=== PATIENT | female | born 1975 | race Caucasian/White ===

== ENCOUNTER → 2017-02-17 | Outpatient (CLI) | payer OTHER ==
[2017-02-17 12:05] LABS: CHLORIDE,CL 103 mmol/L (98-110); SODIUM,NA 143 mmol/L (136-146)
== END ==
LOC: MW.CHOBGYN 10:38
PROVIDERS: ATTEND Nurse Practitioner Women's Health
DX: I12.9 Hypertensive chronic kidney disease with stage 1 through stage 4 chronic kidney disease, or unspecified chronic kidney disease (principal); Q61.5 Medullary cystic kidney
CPT/HCPCS: 36415; 80053; 81001; 82607; 82728; 84443; 84550

== ENCOUNTER → 2017-02-18 | Outpatient (CLI) | payer OTHER | LOC: MW.CHOBGYN 11:36 | PROVIDERS: ATTEND Nurse Practitioner Women's Health | DX: I10 Essential (primary) hypertension (principal); Z53.9 Procedure and treatment not carried out, unspecified reason ==

== ENCOUNTER → 2017-03-30 | Outpatient (CLI) | payer BC, OTHER ==
--- NOTE | 2017-03-30 15:48 | CR ---
EXAMINATION: Cervical and thoracic spine HISTORY: Pain COMPARISON: CT dated 10/24/2015 TECHNIQUE: AP and lateral views of the cervical and thoracic spine FINDINGS: The cervical spinal alignment is normal. The vertebral body heights and disc spaces are grossly main tained. Bone mineralization is normal. No fracture or acute osseous abnormality. The prevertebral so ft tissues are normal. The thoracic spinal alignment is normal. The vertebral body heights appear well maintained. Minimal marginal osteophytes are noted. There is a spinal cord stimulator device noted projecting over the T 8 and T9 vertebral bodies. There is mild disc space narrowing at T10-T11. Bone mineralization is nor mal. IMPRESSION: 1. Mild degenerative changes noted within the cervical and thoracic spine. 2. Spinal cord stimulator device noted with leads projecting over the epidural space at T8-T9.
== END ==
LOC: MW.CHPM 09:59
PROVIDERS: ATTEND Anesthesiology
DX: M54.2 Cervicalgia (principal); M47.812 Spondylosis without myelopathy or radiculopathy, cervical region; M47.814 Spondylosis without myelopathy or radiculopathy, thoracic region; Z79.891 Long term (current) use of opiate analgesic; Z98.890 Other specified postprocedural states
CPT/HCPCS: 72040; 72040-26; 72070; 72070-26; 80305

== ENCOUNTER 2017-08-31 15:35 | Observation (INO) | payer BC ==
[2017-08-31] MEDS ORDERED: Sodium Chloride 0.9% 2.5 ML Syringe FLUSH PRN ×2 (16:04→16:06)
[2017-08-31] MEDS ORDERED: Sodium Chloride 0.9% 10 ML Syringe FLUSH PRN ×2 (16:04→16:06)
[2017-08-31] MEDS ORDERED: Sodium Chloride 0.9% 1,000 ML IV ONE ×2 (16:06→20:29)
--- NOTE | 2017-08-31 16:11 | EDM.PDOC ---
ED HPI GENERAL MEDICAL PROBLEM - General Chief Complaint: General Stated Complaint: FEVER Time Seen by Provider: 08/31/17 16:06 Source of Information: Reports: Patient History Limitations: Reports: No Limitations - History of Present Illness INITIAL COMMENTS - FREE TEXT/NARRATIVE: HISTORY AND PHYSICAL: []42-year-old presenting with flank pain, nausea, vomiting, bladder spasms History of Present Illness: []Patient has felt back pain for the last 2 weeks thought she was going to try to pass a kidney stone, she has had bladder spasms and pain since last night. Review of Systems: As per history of present illness and below otherwise all systems reviewed and negative. Past medical history: As per history of present illness and as reviewed below otherwise noncontributory. Surgical history: As per history of present illness and as reviewed below otherwise noncontributory. Social history: No reported history of drug or alcohol abuse. Family history: As per history of present illness and as reviewed below otherwise noncontributory. Physical exam: Alert and oriented female, answering questioning appropriately. No shortness of breath with speaking full sentences. HEENT: Atraumatic, normocehpalic, pupils reactive, negative for conjunctival pallor or scleral icterus, mucous membranes moist, throat clear, neck supple, nontender, trachea midline. Lungs: Clear to auscultation, breath sounds equal bilaterally, chest non tender. Heart: S1S2, regular, negative for clicks, rubs, or JVD. Abdomen: Soft, nondistended, nontender. Negative for masses or hepatossplenmegaly. Negative for costovertebral tenderness. Pelvis: Stable nontender. Genitourinary: Deferred. Rectal: Deferred Extremities: Atraumatic, negative for cords or calf pain. Neurovascular unremarkable. Neuro: Awake, alert, oriented. Cranial nerves II through XII unremarkable. Cerebellum unremarkable. Motor and sensory unremarkable throughout. Exam nonfocal. 1 mg Dilaudid given pain is reduced to 6/10 Dr. Canada is here viewing CT scan Diagnostics: [CBC CMP CT abdomen and pelvis UA with microscopic and culture] Therapeutics: [IV fluids] Impression: [Ureteral lithiasis Renal colic Intractable pain Plan: []Referred for observation to Dr. Canada Definitive disposition and diagnosis as appropriate pending reevaluation and review of above. hypogatric Pain Score (Numeric/FACES): 7 left flank Pain Score (Numeric/FACES): 7 - Related Data Allergies Allergy/AdvReac Type Severity Reaction Status Date / Time ciprofloxacin [From Cipro] Allergy Rash Verified 08/31/17 15:47 ciprofloxacin HCl Allergy Rash Verified 08/31/17 15:47 [From Cipro] hydrocodone Allergy unknown Verified 08/31/17 15:47 latex Allergy unknown Verified 08/31/17 15:47 meperidine HCl [From Demerol] Allergy unknown Verified 08/31/17 15:47 morphine Allergy unknown Verified 08/31/17 15:47 Home Meds: Home Meds Atenolol 50 mg PO BID 09/28/14 [History] Carisoprodol [Soma] 350 mg PO ASDIRECTED PRN 09/28/14 [History] Estazolam [Prosom] 2 mg PO ASDIRECTED PRN 09/28/14 [History] Furosemide [Lasix] 20 mg PO DAILY 09/28/14 [History] Joint Compound Ketamine Powder 1 appful TOP ASDIRECTED PRN 09/28/14 [History] Levomilnacipran Hydrochloride [Fetzima 24 Hr] 80 mg PO DAILY 09/28/14 [History] Levothyroxine 75 mcg PO DAILY 09/28/14 [History] QUEtiapine [SEROquel XR] 50 mg PO DAILY 09/28/14 [History] Omeprazole [Prilosec] 20 mg PO DAILY 09/29/14 [History] Promethazine [Phenergan] 25 mg PO Q6H PRN #14 tab 09/30/14 [Rx] Sulfamethoxazole/Trimethoprim [Bactrim Ds Tablet] 1 each PO BID #22 tablet 09/30 [Rx] oxyCODONE HCl/Acetaminophen [Percocet 7.5-325 MG] 1 tab PO Q8HR PRN #10 tablet 09/30/14 [Rx] Social & Family History - Tobacco Use Smoking Status *Q: Never Smoker Second Hand Smoke Exposure: No - Alcohol Use Days Per Week of Alcohol Use: 0 - Recreational Drug Use Recreational Drug Use: No ED ROS GENERAL - Review of Systems Review Of Systems: ROS reveals no pertinent complaints other than HPI. ED EXAM, GENERAL - Physical Exam Exam: See Below (see dictation) Course - Vital Signs Last Recorded V/S: Last Vital Signs Temp 36.2 C 08/31/17 15:35 Pulse 102 H 08/31/17 21:42 Resp 18 08/31/17 21:42 BP 137/85 08/31/17 21:42 Pulse Ox 98 08/31/17 21:42 - Orders/Labs/Meds Orders: Active Orders 24 hr Category Date Time Status Patient Status [ADT] Stat ADT 08/31/17 21:47 Ordered Cooling Warming Measures [RC] ASDIRECTED Care 08/31/17 18:28 Active Abdomen Pelvis w Cont [CT] Stat Exams 08/31/17 18:27 Taken CULTURE URINE [RM] Stat Lab 08/31/17 18:42 Received Belladonna/Opium [B & O Supprettes No. 15A] Med 08/31/17 21:49 Ordered 1 supp RECTAL Q4H PRN Dextrose 5%-1/2 Normal Saline @ 125 MLS/HR(1000ml) Med 08/31/17 22:00 Ordered Dextrose 5%-0.45% NaCl [Dextrose 5%-1/2 NS] 1,000 ml IV ASDIRECTED HYDROmorphone [Dilaudid] Med 08/31/17 21:52 Ordered 1 mg IVPUSH Q2H PRN Ondansetron [Zofran] Med 08/31/17 21:50 Ordered 4 mg IVPUSH Q6H PRN Sodium Chloride 0.9% [Saline Flush] Med 08/31/17 16:04 Active 10 ml FLUSH ASDIRECTED PRN Sodium Chloride 0.9% [Saline Flush] Med 08/31/17 16:06 Active 10 ml FLUSH ASDIRECTED PRN Sodium Chloride 0.9% [Saline Flush] Med 08/31/17 16:04 Active 2.5 ml FLUSH ASDIRECTED PRN Sodium Chloride 0.9% [Saline Flush] Med 08/31/17 16:06 Active 2.5 ml FLUSH ASDIRECTED PRN Ice Pack [Ice Therapy] [OM.PC] Stat Oth 08/31/17 18:28 Ordered Saline Lock Insert [OM.PC] Stat Oth 08/31/17 16:05 Ordered Saline Lock Insert [OM.PC] Stat Oth 08/31/17 16:06 Ordered Medication Orders Belladonna Alkaloids/Opium (B & O Supprettes No. 15a) 1 supp RECTAL Q4H PRN PRN Reason: Spasms Stop: 09/01/17 18:00 Hydromorphone HCl (Dilaudid) 1 mg IVPUSH Q2H PRN PRN Reason: Pain (moderate 4-6) Stop: 09/01/17 18:00 Dextrose/Sodium Chloride (Dextrose 5%-1/2 Ns) 1,000 mls @ 125 mls/hr IV ASDIRECTED NAN Ondansetron HCl (Zofran) 4 mg IVPUSH Q6H PRN PRN Reason: Nausea Sodium Chloride (Saline Flush) 10 ml FLUSH ASDIRECTED PRN PRN Reason: Keep Vein Open Last Admin: 08/31/17 17:14 Dose: 10 ml Sodium Chloride (Saline Flush) 2.5 ml FLUSH ASDIRECTED PRN PRN Reason: Keep Vein Open Last Admin: 08/31/17 17:14 Dose: 2.5 ml Sodium Chloride (Saline Flush) 10 ml FLUSH ASDIRECTED PRN PRN Reason: Keep Vein Open Last Admin: 08/31/17 17:14 Dose: 10 ml Sodium Chloride (Saline Flush) 2.5 ml FLUSH ASDIRECTED PRN PRN Reason: Keep Vein Open Last Admin: 08/31/17 17:14 Dose: 2.5 ml Labs: Laboratory Tests 08/31/17 08/31/17 08/31/17 Range/Units 16:17 16:17 16:17 WBC 9.29 (4.0-11.0) K/uL RBC 4.83 (4.30-5.90) M/uL Hgb 15.0 (12.0-16.0) g/dL Hct 43.9 (36.0-46.0) % MCV 90.9 (80.0-98.0) fL MCH 31.1 (27.0-32.0) pg MCHC 34.2 (31.0-37.0) g/dL RDW Std Deviation 44.8 (28.0-62.0) fl RDW Coeff of Shannan 14 (11.0-15.0) % Plt Count 226 (150-400) K/uL MPV 9.20 (7.40-12.00) fL Neut % (Auto) 82.0 H (48.0-80.0) % Lymph % (Auto) 13.9 L (16.0-40.0) % [place] % (Auto) 3.7 (0.0-15.0) % Eos % (Auto) 0.2 (0.0-7.0) % Baso % (Auto) 0.2 (0.0-1.5) % Neut # (Auto) 7.6 H (1.4-5.7) K/uL Lymph # (Auto) 1.3 (0.6-2.4) K/uL [place] # (Auto) 0.3 (0.0-0.8) K/uL Eos # (Auto) 0.0 (0.0-0.7) K/uL Baso # (Auto) 0.0 (0.0-0.1) K/uL Nucleated RBC % 0.0 /100WBC Nucleated RBCs # 0 K/uL Sodium 142 (136-146) mmol/L Potassium 4.1 (3.5-5.1) mmol/L Chloride 104 (98-110) mmol/L Carbon Dioxide 27 (21-31) mmol/L BUN 20 (6.0-23.0) mg/dL Creatinine 0.9 (0.6-1.5) mg/dL Est Cr Clr Drug Dosing TNP Estimated GFR (MDRD) > 60.0 ml/min Glucose 109 (60-110) mg/dL Calcium 9.6 (8.8-10.8) mg/dL Total Bilirubin 0.3 (0.1-1.5) mg/dL AST 21 (5-40) IU/L ALT 16 (8-54) IU/L Alkaline Phosphatase 85 (40-150) Ammonia 36 (14-68) UG/DL Total Protein 7.9 (6.0-8.0) g/dL Albumin 4.4 (3.5-5.0) g/dL Globulin 3.5 (2.0-3.5) g/dL Albumin/Globulin Ratio 1.3 (1.3-2.8) HCG, Quant mIU/mL Urine Color Urine Appearance Urine pH (5.0-8.0) Ur Specific [place] (1.001-1.035) Urine Protein (NEGATIVE) mg/dL Urine Glucose (UA) (NEGATIVE) mg/dL Urine Ketones (NEGATIVE) mg/dL Urine Occult Blood (NEGATIVE) Urine Nitrite (NEGATIVE) Urine Bilirubin (NEGATIVE) Urine Urobilinogen (<2.0) EU/dL Ur Leukocyte Esterase (NEGATIVE) Urine RBC (0-2/HPF) Urine WBC (0-5/HPF) Ur Epithelial Cells (NONE-FEW) Urine Bacteria (NEGATIVE) Urine HCG, Qual (NEGATIVE) 08/31/17 08/31/17 08/31/17 Range/Units 16:17 18:42 18:42 WBC (4.0-11.0) K/uL RBC (4.30-5.90) M/uL Hgb (12.0-16.0) g/dL Hct (36.0-46.0) % MCV (80.0-98.0) fL MCH (27.0-32.0) pg MCHC (31.0-37.0) g/dL RDW Std Deviation (28.0-62.0) fl RDW Coeff of Shannan (11.0-15.0) % Plt Count (150-400) K/uL MPV (7.40-12.00) fL Neut % (Auto) (48.0-80.0) % Lymph % (Auto) (16.0-40.0) % [place] % (Auto) (0.0-15.0) % Eos % (Auto) (0.0-7.0) % Baso % (Auto) (0.0-1.5) % Neut # (Auto) (1.4-5.7) K/uL Lymph # (Auto) (0.6-2.4) K/uL [place] # (Auto) (0.0-0.8) K/uL Eos # (Auto) (0.0-0.7) K/uL Baso # (Auto) (0.0-0.1) K/uL Nucleated RBC % /100WBC Nucleated RBCs # K/uL Sodium (136-146) mmol/L Potassium (3.5-5.1) mmol/L Chloride (98-110) mmol/L Carbon Dioxide (21-31) mmol/L BUN (6.0-23.0) mg/dL Creatinine (0.6-1.5) mg/dL Est Cr Clr Drug Dosing Estimated GFR (MDRD) ml/min Glucose (60-110) mg/dL Calcium (8.8-10.8) mg/dL Total Bilirubin (0.1-1.5) mg/dL AST (5-40) IU/L ALT (8-54) IU/L Alkaline Phosphatase (40-150) Ammonia (14-68) UG/DL Total Protein (6.0-8.0) g/dL Albumin (3.5-5.0) g/dL Globulin (2.0-3.5) g/dL Albumin/Globulin Ratio (1.3-2.8) HCG, Quant < 1.2 mIU/mL Urine Color YELLOW Urine Appearance CLEAR Urine pH 6.0 (5.0-8.0) Ur Specific [place] 1.015 (1.001-1.035) Urine Protein NEGATIVE (NEGATIVE) mg/dL Urine Glucose (UA) NEGATIVE (NEGATIVE) mg/dL Urine Ketones NEGATIVE (NEGATIVE) mg/dL Urine Occult Blood NEGATIVE (NEGATIVE) Urine Nitrite NEGATIVE (NEGATIVE) Urine Bilirubin NEGATIVE (NEGATIVE) Urine Urobilinogen 0.2 (<2.0) EU/dL Ur Leukocyte Esterase MODERATE (NEGATIVE) Urine RBC 0-2 (0-2/HPF) Urine WBC 5-8 (0-5/HPF) Ur Epithelial Cells OCCASIONAL (NONE-FEW) Urine Bacteria 1+ H (NEGATIVE) Urine HCG, Qual NEGATIVE (NEGATIVE) Meds: Medications Generic Name Dose Route Start Last Admin Trade Name Freq PRN Reason Stop Dose Admin Belladonna Alkaloids/Opium 1 supp 08/31/17 21:49 B & O Supprettes No. 15a RECTAL 09/01/17 18:00 Q4H PRN Spasms Hydromorphone HCl 1 mg 08/31/17 21:52 Dilaudid IVPUSH 09/01/17 18:00 Q2H PRN Pain (moderate 4-6) Dextrose/Sodium Chloride 1,000 mls @ 125 mls/hr 08/31/17 22:00 Dextrose 5%-1/2 Ns IV ASDIRECTED NAN Ondansetron HCl 4 mg 08/31/17 21:50 Zofran IVPUSH Q6H PRN Nausea Sodium Chloride 10 ml 08/31/17 16:04 08/31/17 17:14 Saline Flush FLUSH 10 ml ASDIRECTED PRN Administration Keep Vein Open Sodium Chloride 2.5 ml 08/31/17 16:04 08/31/17 17:14 Saline Flush FLUSH 2.5 ml ASDIRECTED PRN Administration Keep Vein Open Sodium Chloride 10 ml 08/31/17 16:06 08/31/17 17:14 Saline Flush FLUSH 10 ml ASDIRECTED PRN Administration Keep Vein Open Sodium Chloride 2.5 ml 08/31/17 16:06 08/31/17 17:14 Saline Flush FLUSH 2.5 ml ASDIRECTED PRN Administration Keep Vein Open Discontinued Medications Generic Name Dose Route Start Last Admin Trade Name Freq PRN Reason Stop Dose Admin Hydromorphone HCl 1 mg 08/31/17 20:17 08/31/17 20:26 Dilaudid IVPUSH 08/31/17 20:18 1 mg ONETIME ONE Administration Hydromorphone HCl 1 mg 08/31/17 20:47 08/31/17 20:50 Dilaudid IVPUSH 08/31/17 20:48 1 mg ONETIME ONE Administration Hydromorphone HCl 1 mg 08/31/17 21:33 08/31/17 21:40 Dilaudid IVPUSH 08/31/17 21:34 1 mg ONETIME ONE Administration Sodium Chloride 1,000 mls @ 999 mls/hr 08/31/17 16:06 08/31/17 17:14 Normal Saline IV 08/31/17 17:06 999 mls/hr STAT ONE Administration Sodium Chloride 1,000 mls @ 999 mls/hr 08/31/17 20:29 08/31/17 20:30 Normal Saline IV 08/31/17 21:29 999 mls/hr STAT ONE Administration Ketorolac Tromethamine 30 mg 08/31/17 16:06 08/31/17 17:16 Toradol IVPUSH 08/31/17 16:07 Not Given ONETIME ONE Levofloxacin 500 mg 08/31/17 20:18 08/31/17 20:27 Levaquin PO 08/31/17 20:19 500 mg ONETIME ONE Administration Departure - Departure Time of Disposition: 21:55 Disposition: Refer to Observation Condition: Fair Clinical Impression: Ureterolithiasis - Discharge Information Referrals: Genna De La Paz, WAX BLEACHER [Primary Care Provider] - Forms: ED Department Discharge - My Orders Last 24 Hours: My Active Orders 08/31/17 16:04 Sodium Chloride 0.9% [Saline Flush] 10 ml FLUSH ASDIRECTED PRN Sodium Chloride 0.9% [Saline Flush] 2.5 ml FLUSH ASDIRECTED PRN 08/31/17 16:05 Saline Lock Insert [OM.PC] Stat 08/31/17 16:06 Sodium Chloride 0.9% [Saline Flush] 10 ml FLUSH ASDIRECTED PRN Sodium Chloride 0.9% [Saline Flush] 2.5 ml FLUSH ASDIRECTED PRN Saline Lock Insert [OM.PC] Stat 08/31/17 18:27 Abdomen Pelvis w Cont [CT] Stat 08/31/17 18:28 Cooling Warming Measures [RC] ASDIRECTED Ice Pack [Ice Therapy] [OM.PC] Stat 08/31/17 18:42 CULTURE URINE [RM] Stat 08/31/17 21:47 Patient Status [ADT] Stat 08/31/17 21:49 Belladonna/Opium [B & O Supprettes No. 15A] 1 supp RECTAL Q4H PRN 08/31/17 21:50 Ondansetron [Zofran] 4 mg IVPUSH Q6H PRN 08/31/17 21:52 HYDROmorphone [Dilaudid] 1 mg IVPUSH Q2H PRN 08/31/17 22:00 Dextrose 5%-1/2 Normal Saline @ 125 MLS/HR(1000ml) Dextrose 5%-0.45% NaCl [ Dextrose 5%-1/2 NS] 1,000 ml IV ASDIRECTED - Assessment/Plan Last 24 Hours: My Active Orders 08/31/17 16:04 Sodium Chloride 0.9% [Saline Flush] 10 ml FLUSH ASDIRECTED PRN Sodium Chloride 0.9% [Saline Flush] 2.5 ml FLUSH ASDIRECTED PRN 08/31/17 16:05 Saline Lock Insert [OM.PC] Stat 08/31/17 16:06 Sodium Chloride 0.9% [Saline Flush] 10 ml FLUSH ASDIRECTED PRN Sodium Chloride 0.9% [Saline Flush] 2.5 ml FLUSH ASDIRECTED PRN Saline Lock Insert [OM.PC] Stat 08/31/17 18:27 Abdomen Pelvis w Cont [CT] Stat 08/31/17 18:28 Cooling Warming Measures [RC] ASDIRECTED Ice Pack [Ice Therapy] [OM.PC] Stat 08/31/17 18:42 CULTURE URINE [RM] Stat 08/31/17 21:47 Patient Status [ADT] Stat 08/31/17 21:49 Belladonna/Opium [B & O Supprettes No. 15A] 1 supp RECTAL Q4H PRN 08/31/17 21:50 Ondansetron [Zofran] 4 mg IVPUSH Q6H PRN 08/31/17 21:52 HYDROmorphone [Dilaudid] 1 mg IVPUSH Q2H PRN 08/31/17 22:00 Dextrose 5%-1/2 Normal Saline @ 125 MLS/HR(1000ml) Dextrose 5%-0.45% NaCl [ Dextrose 5%-1/2 NS] 1,000 ml IV ASDIRECTED
[2017-08-31 16:45] LABS: CHLORIDE,CL 104 mmol/L (98-110); SODIUM,NA 142 mmol/L (136-146)
[2017-08-31] MEDS: Ketorolac 30 MG/ML SDV IVPUSH ONE ×2 (17:14→17:16)
[2017-08-31] MEDS ORDERED: HYDROmorphone 1 MG/ML Syringe IVPUSH ONE ×3 (20:17→21:33)
[2017-08-31] MEDS ORDERED: Levofloxacin 500 MG Tab PO ONE (20:18)
[2017-08-31] MEDS: Dextrose 5%-0.45% NaCl 1,000 ML IV SCH (22:00)
[2017-08-31] MEDS: Ondansetron 4 MG/2 ML SDV IVPUSH PRN (22:03)
[2017-08-31] MEDS: Belladonna Alkaloids/Opium 16.2-30 MG Supp RECTAL PRN (22:40)
[2017-09-01] MEDS: HYDROmorphone 1 MG/ML Syringe IVPUSH PRN ×6 (00:18→12:52)
[2017-09-01] MEDS: Belladonna Alkaloids/Opium 16.2-30 MG Supp RECTAL PRN ×3 (03:18→11:34)
[2017-09-01] MEDS: Ondansetron 4 MG/2 ML SDV IVPUSH PRN ×2 (04:59→11:35)
[2017-09-01] MEDS: Dextrose 5%-0.45% NaCl 1,000 ML IV SCH (06:09)
[2017-09-01 12:06] VITALS: BP 112/64
--- NOTE | 2017-09-01 15:35 | CT ---
EXAM DATE: 08/31/17 PATIENT'S AGE: 42 Patient: DALY CERDA Facility: [place], [place] Site . Site : [id number] Study: CT Abdomen/Pelvis [id number] 9:32:58 PM Ordering Physician: Doctor Dutta Final Report: INDICATION: Left flank pain. History of multiple kidney stones and surgeries. COMPARISON: CT scan of the abdomen and pelvis dated 30 October 2015. TECHNIQUE: CT scan of the abdomen and pelvis with 100 cc of [id number] given intravenously. FINDINGS: The lung bases are unremarkable. No focal abnormalities identified in the visualized portions of the liver, spleen, pancreas, and adrenal glands. Irregularity of the renal cortices likely secondary to previous renal scarring. Dystrophic cortical calcifications and a few possible nonobstructing nephroliths throughout both kidneys are unchanged. No enhancing renal lesions identified. No hydronephrosis. No obstructing uroliths. The GI tract is incompletely distended but shows no gross abnormalities. Normal appendix. Postsurgical changes of the stomach. No retroperitoneal, pelvic sidewall, or mesenteric adenopathy. Stabilization hardware in the lower lumbar spine. IMPRESSION: No acute abnormalities of the abdomen or pelvis identified. No hydronephrosis. No obstructing uroliths. Dictated by Sunil Mcarthur MD @ 08/31/2017 9:59:53 PM Dictated by: Sunil Mcarthur MD @ 08/31/2017 22:00:05 (Electronic Signature) Report Signed by Proxy. [facility]ITALAmina
--- NOTE | 2018-02-03 00:18 | DISCH ---
DATE OF DISCHARGE: 09/01/2017 PRIMARY CARE PHYSICIAN: BLANKA Bejarano She is a 42-year-old. She was seen in the emergency room on 09/01/2017 with flank pain. She had a CT scan that showed no obstruction and no stones. She was sent home. RAMÍREZ PAREDES /[id number]
== END 2017-09-01 15:00 | disposition home or self-care (01) ==
LOC: MW.ED 15:35 → MW.MS 21:47
PROVIDERS: ADMIT Urology; ATTEND Urology
DX: N20.1 Calculus of ureter (principal); Z87.442 Personal history of urinary calculi; Z88.1 Allergy status to other antibiotic agents; Z88.5 Allergy status to narcotic agent; Z91.040 Latex allergy status; Z79.899 Other long term (current) drug therapy
CPT/HCPCS: 36415; 74177; 80053; 81001; 81025; 82140; 84702; 85025; 87086; 96361; 96374; 96375; 96376; 99285; A9270; G0378; J1170; J2405; J7040; J7042; 99283; J1885

== ENCOUNTER 2019-10-03 20:47 | Emergency (ER) | payer BC ==
[2019-10-03] MEDS ORDERED: Ibuprofen 800 MG Tab PO ONE (21:13)
[2019-10-03] MEDS ORDERED: Sodium Chloride 0.9% 10 ML Syringe FLUSH PRN (21:13)
[2019-10-03] MEDS ORDERED: Sodium Chloride 0.9% 1,000 ML IV ONE ×2 (21:13→21:56)
[2019-10-03] MEDS ORDERED: Sodium Chloride 0.9% 2.5 ML Syringe FLUSH PRN (21:13)
--- NOTE | 2019-10-03 21:31 | EDM.PDOC ---
ED HPI GENERAL MEDICAL PROBLEM - General Chief Complaint: General Stated Complaint: SPOKE TO NURSE Time Seen by Provider: 10/03/19 21:12 - History of Present Illness INITIAL COMMENTS - FREE TEXT/NARRATIVE: HISTORY AND PHYSICAL: History of present illness: The patient is a 44-year-old female with a history of bilateral medullary sponge kidney disease, multiple episodes of kidney stones, chronic back pain who presents with history of having bilateral ureteral stents placed by Dr. Jim on September 21 for kidney stones and who is scheduled to have a secondary surgery on October 22 to "clean things up" and who presents with complaints of 3 days of high fevers and poor by mouth intake generalized body aches diffuse lower abdominal pain with urinary urgency burning and discomfort. The patient says she has had the urinary symptoms since the stents were placed but it has worsened over the last 3 days and she was concerned with her recent fevers about a urinary tract infection and went to [place] today and had a urine test performed. There was supposed to call her with results and nobody returned her calls and nobody called with those test results so she is unsure of whether or not she has an infection. Patient also tried to get in to see her urologist who is traveling and seeing patients at the clinic today and tomorrow but she was unable to get an appointment. The patient says she has been trying to hydrate but is not doing a very good job and does feel very dehydrated and complains of a diffuse headache neck and full back pain including the lumbar back and lower abdominal pain. She says that the lower abdominal pain has been ongoing since the stent placement again but is been worse the last 3 days. She has been taking Tylenol and her fever responds but because she was told not to take Motrin on a regular basis she has not supplemented. She does follow with a headhunter for her underlying kidney disease in [place]. She has no upper abdominal pain no nausea vomiting or diarrhea and no cough shortness of breath. She says her throat feels very dry and it is uncomfortable to swallow but she does not say specifically hurts. She does not have any earache sinus pain or drainage. She feels very worn down. The patient does have prescriptions for chronic pain medication which she tells me she only takes as needed and not on a regular basis. Temps at home were as high as 103 but did respond to the Tylenol. The patient says that she has no flank pain and only the lower abdominal pain and feels like her bladder is spasming and she started taking [id number] Azo. Review of systems: As per history of present illness and below otherwise all systems reviewed and negative. Past medical history: As per history of present illness and as reviewed below otherwise noncontributory. Surgical history: As per history of present illness and as reviewed below otherwise noncontributory. Social history: No reported history of drug or alcohol abuse. Family history: As per history of present illness and as reviewed below otherwise noncontributory. Physical exam: General: Well-developed well-nourished mildly overweight female who is nontoxic and vital signs are noted by me. She moves easily in the bed without distress and her skin is slightly sweaty she is not grossly diaphoretic. HEENT: Atraumatic, normocephalic, pupils reactive, negative for conjunctival pallor or scleral icterus, mucous membranes dry, throat clear, neck supple, nontender, trachea midline. There is no cervical adenopathy or nuchal rigidity and no sinus tenderness Lungs: Clear to auscultation, breath sounds equal bilaterally, chest nontender. Heart: S1S2, regular rhythm and tachycardic rate on my evaluation in the 120s, no overt murmurs Abdomen: Soft, nondistended, mild lower abdominal discomfort to palpation which is diffuse and does not localize otherwise no rebound or guarding and bowel sounds are hypoactive Negative for masses or hepatosplenomegaly. Negative for costovertebral tenderness. Pelvis: Stable nontender. Genitourinary: Deferred. Rectal: Deferred. Extremities: Atraumatic, negative for cords or calf pain. Neurovascular unremarkable. Neuro: Awake, alert, oriented. Cranial nerves II through XII unremarkable. Cerebellum unremarkable. Motor and sensory unremarkable throughout. Exam nonfocal. 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 He would like me to give a dose of Rocephin and send the patient out on Bactrim and we discussed that this may be completely viral etiology but we want to be safe in 2 week and get the urine culture. The patient's own urologist is here in town in [place] tomorrow and the patient was told that she could always follow up with her pending all of our results. The patient and family were made aware of the ultrasound results which reveal no evidence of hydronephrosis and the images were push to [place] so that her urologist can review them. Patient feels much improved and we will recommend discharge home with a prescription for Bactrim per the urologist direction. I' ve instructed her to contact her own urologist first thing in the morning and have a dialogue with her about care plan going forward Impression: Fever, bilateral ureteral stents rule out UTI Definitive disposition and diagnosis as appropriate pending reevaluation and review of above. 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 Pain Score (Numeric/FACES): 5 - Related Data Allergies Allergy/AdvReac Type Severity Reaction Status Date / Time ciprofloxacin [From Cipro] Allergy Rash Verified 10/03/19 21:13 ciprofloxacin HCl Allergy Rash Verified 10/03/19 21:13 [From Cipro] hydrocodone Allergy Hives Verified 10/03/19 21:24 latex Allergy Hives Verified 10/03/19 21:13 meperidine HCl [From Demerol] Allergy Hives Verified 10/03/19 21:13 morphine Allergy Hives Verified 10/03/19 21:13 Home Meds: Home Meds Levothyroxine 75 mcg PO DAILY 09/28/14 [History] Pantoprazole [ProTONIX] 40 mg PO DAILY 10/03/19 [History] Potassium Citrate [Potassium Citrate ER] 10 meq PO BID 10/03/19 [History] Vilazodone [Viibryd] 40 mg PO DAILY 10/03/19 [History] hydroCHLOROthiazide [Hydrochlorothiazide] 25 mg PO DAILY 10/03/19 [History] Past Medical History - Past Health History Medical/Surgical History: Denies Medical/Surgical History Cardiovascular History: Reports: Hypertension Gastrointestinal History: Reports: Cholelithiasis Genitourinary History: Reports: Renal Calculus, Other (See Below) Other Genitourinary History: kidney ds 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 Psychiatric History: Reports: Depression Endocrine/Metabolic History: Reports: Hypothyroidism - Infectious Disease History Infectious Disease History: Reports: Chicken Pox, Influenza - Past Surgical History GI Surgical History: Reports: Cholecystectomy, Other (See Below) Other GI Surgeries/Procedures: gastric sleeves Female Surgical History: Reports: Hysterectomy, Lithotripsy/ESWL Endocrine Surgical History: Reports: None Musculoskeletal Surgical History: Reports: Other (See Below) Other Musculoskeletal Surgeries/Procedures:: back surgery Social & Family History - Family History Family Medical History: Noncontributory - Tobacco Use Smoking Status *Q: Never Smoker - Caffeine Use Caffeine Use: Reports: Coffee - Recreational Drug Use Recreational Drug Use: No ED ROS GENERAL - Review of Systems Review Of Systems: ROS reveals no pertinent complaints other than HPI. ED EXAM, GENERAL - Physical Exam Exam: See Below (See dictation) Course - Vital Signs Last Recorded V/S: Last Vital Signs Temp 37.9 C 10/03/19 22:56 Pulse 120 H 10/03/19 22:56 Resp 20 10/03/19 22:56 BP 111/43 L 10/03/19 22:56 Pulse Ox 94 L 10/03/19 22:56 - Orders/Labs/Meds Orders: Active Orders 24 hr Category Date Time Status Cardiac Monitoring [RC] . DIRECTED Care 10/03/19 21:23 Active EKG Documentation Completion [RC] STAT Care 10/03/19 21:23 Active Pulse Oximetry [RC] ASDIRECTED Care 10/03/19 21:23 Active CULTURE BLOOD [BC] Stat Lab 10/03/19 21:15 Received CULTURE BLOOD [BC] Stat Lab 10/03/19 21:31 Received CULTURE STREP A CONFIRMATION [RM] Stat Lab 10/03/19 21:30 Results CULTURE URINE [RM] Stat Lab 10/03/19 21:10 Received STREP SCRN A RAPID W CULT CONF [] Stat Lab 10/03/19 21:30 Results Sodium Chloride 0.9% [Saline Flush] Med 10/03/19 21:13 Active 10 ml FLUSH ASDIRECTED PRN Sodium Chloride 0.9% [Saline Flush] Med 10/03/19 21:13 Active 2.5 ml FLUSH ASDIRECTED PRN Blood Culture x2 Reflex Set [OM.PC] Stat Oth 10/03/19 21:25 Ordered Saline Lock Insert [OM.PC] Stat Oth 10/03/19 21:13 Ordered Medication Orders Sodium Chloride (Saline Flush) 10 ml FLUSH ASDIRECTED PRN PRN Reason: Keep Vein Open Last Admin: 10/03/19 21:29 Dose: 10 ml Sodium Chloride (Saline Flush) 2.5 ml FLUSH ASDIRECTED PRN PRN Reason: Keep Vein Open Last Admin: 10/03/19 21:29 Dose: 2.5 ml Labs: Laboratory Tests 10/03/19 10/03/19 10/03/19 Range/Units 21:10 21:15 21:15 WBC 17.19 H (4.0-11.0) K/uL RBC 4.59 (4.30-5.90) M/uL Hgb 13.6 (12.0-16.0) g/dL Hct 41.6 (36.0-46.0) % MCV 90.6 (80.0-98.0) fL MCH 29.6 (27.0-32.0) pg MCHC 32.7 (31.0-37.0) g/dL RDW Std Deviation 45.3 (28.0-62.0) fl RDW Coeff of Shannan 14 (11.0-15.0) % Plt Count 211 (150-400) K/uL MPV 9.60 (7.40-12.00) fL Neut % (Auto) 83.5 H (48.0-80.0) % Lymph % (Auto) 7.9 L (16.0-40.0) % [place] % (Auto) 8.4 (0.0-15.0) % Eos % (Auto) 0.1 (0.0-7.0) % Baso % (Auto) 0.1 (0.0-1.5) % Neut # (Auto) 14.3 H (1.4-5.7) K/uL Lymph # (Auto) 1.4 (0.6-2.4) K/uL [place] # (Auto) 1.5 H (0.0-0.8) K/uL Eos # (Auto) 0.0 (0.0-0.7) K/uL Baso # (Auto) 0.0 (0.0-0.1) K/uL Nucleated RBC % 0.0 /100WBC Nucleated RBCs # 0 K/uL Lactate (0.20-2.00) mmol/L Sodium 138 (136-145) mmol/L Potassium 3.8 (3.5-5.1) mmol/L Chloride 99 (98-107) mmol/L Carbon Dioxide 26.3 (21.0-32.0) mmol/L BUN 18 (7.0-18.0) mg/dL Creatinine 1.4 H (0.6-1.0) mg/dL Est Cr Clr Drug Dosing 45.18 mL/min Estimated GFR (MDRD) 40.5 ml/min Glucose 156 H (74-106) mg/dL Calcium 9.1 (8.5-10.1) mg/dL Total Bilirubin 0.3 (0.2-1.0) mg/dL AST 15 (15-37) IU/L ALT 21 (14-63) IU/L Alkaline Phosphatase 98 (46-116) U/L Total Protein 8.6 H (6.4-8.2) g/dL Albumin 3.4 (3.4-5.0) g/dL Globulin 5.2 H (2.6-4.0) g/dL Albumin/Globulin Ratio 0.7 L (0.9-1.6) Urine Color YELLOW Urine Appearance SLT CLOUDY Urine pH 7.5 (5.0-8.0) Ur Specific [place] 1.010 (1.001-1.035) Urine Protein 100 H (NEGATIVE) mg/dL Urine Glucose (UA) 100 H (NEGATIVE) mg/dL Urine Ketones NEGATIVE (NEGATIVE) mg/dL Urine Occult Blood MODERATE H (NEGATIVE) Urine Nitrite POSITIVE H (NEGATIVE) Urine Bilirubin NEGATIVE (NEGATIVE) Urine Urobilinogen 4.0 H (<2.0) EU/dL Ur Leukocyte Esterase MODERATE H (NEGATIVE) Urine RBC 2-3 (0-2/HPF) Urine WBC 5-7 (0-5/HPF) Ur Epithelial Cells RARE (NONE-FEW) Urine Bacteria 1+ H (NEGATIVE) 10/03/19 Range/Units 21:15 WBC (4.0-11.0) K/uL RBC (4.30-5.90) M/uL Hgb (12.0-16.0) g/dL Hct (36.0-46.0) % MCV (80.0-98.0) fL MCH (27.0-32.0) pg MCHC (31.0-37.0) g/dL RDW Std Deviation (28.0-62.0) fl RDW Coeff of Shannan (11.0-15.0) % Plt Count (150-400) K/uL MPV (7.40-12.00) fL Neut % (Auto) (48.0-80.0) % Lymph % (Auto) (16.0-40.0) % [place] % (Auto) (0.0-15.0) % Eos % (Auto) (0.0-7.0) % Baso % (Auto) (0.0-1.5) % Neut # (Auto) (1.4-5.7) K/uL Lymph # (Auto) (0.6-2.4) K/uL [place] # (Auto) (0.0-0.8) K/uL Eos # (Auto) (0.0-0.7) K/uL Baso # (Auto) (0.0-0.1) K/uL Nucleated RBC % /100WBC Nucleated RBCs # K/uL Lactate 1.9 (0.20-2.00) mmol/L Sodium (136-145) mmol/L Potassium (3.5-5.1) mmol/L Chloride (98-107) mmol/L Carbon Dioxide (21.0-32.0) mmol/L BUN (7.0-18.0) mg/dL Creatinine (0.6-1.0) mg/dL Est Cr Clr Drug Dosing mL/min Estimated GFR (MDRD) ml/min Glucose (74-106) mg/dL Calcium (8.5-10.1) mg/dL Total Bilirubin (0.2-1.0) mg/dL AST (15-37) IU/L ALT (14-63) IU/L Alkaline Phosphatase (46-116) U/L Total Protein (6.4-8.2) g/dL Albumin (3.4-5.0) g/dL Globulin (2.6-4.0) g/dL Albumin/Globulin Ratio (0.9-1.6) Urine Color Urine Appearance Urine pH (5.0-8.0) Ur Specific [place] (1.001-1.035) Urine Protein (NEGATIVE) mg/dL Urine Glucose (UA) (NEGATIVE) mg/dL Urine Ketones (NEGATIVE) mg/dL Urine Occult Blood (NEGATIVE) Urine Nitrite (NEGATIVE) Urine Bilirubin (NEGATIVE) Urine Urobilinogen (<2.0) EU/dL Ur Leukocyte Esterase (NEGATIVE) Urine RBC (0-2/HPF) Urine WBC (0-5/HPF) Ur Epithelial Cells (NONE-FEW) Urine Bacteria (NEGATIVE) Meds: Medications Generic Name Dose Route Start Last Admin Trade Name Freq PRN Reason Stop Dose Admin Sodium Chloride 10 ml 10/03/19 21:13 10/03/19 21:29 Saline Flush FLUSH 10 ml ASDIRECTED PRN Administration Keep Vein Open Sodium Chloride 2.5 ml 10/03/19 21:13 10/03/19 21:29 Saline Flush FLUSH 2.5 ml ASDIRECTED PRN Administration Keep Vein Open Discontinued Medications Generic Name Dose Route Start Last Admin Trade Name Freq PRN Reason Stop Dose Admin Belladonna Alkaloids/Opium 1 supp 10/03/19 22:56 10/03/19 23:10 B & O Supprettes No. 15a RECTAL 10/03/19 22:57 1 supp ONETIME ONE Administration Hydromorphone HCl 2 mg 10/03/19 22:09 10/03/19 22:19 Dilaudid IVPUSH 10/03/19 22:10 2 mg ONETIME ONE Administration Sodium Chloride 1,000 mls @ 999 mls/hr 10/03/19 21:13 10/03/19 21:30 Normal Saline IV 10/03/19 22:13 999 mls/hr STAT ONE Administration Sodium Chloride 1,000 mls @ 999 mls/hr 10/03/19 21:56 10/03/19 22:16 Normal Saline IV 10/03/19 22:56 999 mls/hr STAT ONE Administration Ceftriaxone Sodium/Dextrose 2 50 mls @ 100 mls/hr 10/03/19 22:05 10/03/19 22: 15 gm/ Premix IV 10/03/19 22:34 100 mls/hr ONETIME ONE Administration Ibuprofen 800 mg 10/03/19 21:13 10/03/19 21:29 Motrin PO 10/03/19 21:14 800 mg ONETIME ONE Administration Departure - Departure Time of Disposition: 23:45 Disposition: Home, Self-Care 01 Condition: Fair Clinical Impression: Fever, UTI, Urinary tract infectious disease - Discharge Information Referrals: Lucina Conde PA [Primary Care Provider] - Forms: ED Department Discharge Additional Instructions: The following information is given to patients seen in the emergency department who are being discharged to home. This information is to outline your options for follow-up care. We provide all patients seen in our emergency department with a follow-up referral. The need for follow-up, as well as the timing and circumstances, are variable depending upon the specifics of your emergency department visit. If you don't have a primary care physician on staff, we will provide you with a referral. We always advise you to contact your personal physician following an emergency department visit to inform them of the circumstance of the visit and for follow-up with them and/or the need for any referrals to a consulting specialist. The emergency department will also refer you to a specialist when appropriate. This referral assures that you have the opportunity for followup care with a specialist. All of these measure are taken in an effort to provide you with optimal care, which includes your followup. Under all circumstances we always encourage you to contact your private physician who remains a resource for coordinating your care. When calling for followup care, please make the office aware that this follow-up is from your recent emergency room visit. If for any reason you are refused follow-up, please contact the [facility] emergency department at and ask to speak to the emergency department charge nurse. [facility] Primary care- Internal Medicine and Family [address] [address] Please contact your urologist at [facility] first thing in the morning and discuss with her care plan going forward. He'll be contacted about the urine and blood cultures if there is a change in care plan. Fill the prescription you have been given for antibiotics and start in the afternoon as long as your urologist approves. Use medications you have at home for pain management and push hydration. Return to ER as needed and as discussed - My Orders Last 24 Hours: My Active Orders 10/03/19 21:10 CULTURE URINE [RM] Stat 10/03/19 21:13 Sodium Chloride 0.9% [Saline Flush] 10 ml FLUSH ASDIRECTED PRN Sodium Chloride 0.9% [Saline Flush] 2.5 ml FLUSH ASDIRECTED PRN Saline Lock Insert [OM.PC] Stat 10/03/19 21:15 CULTURE BLOOD [BC] Stat 10/03/19 21:23 Cardiac Monitoring [RC] . DIRECTED EKG Documentation Completion [RC] STAT Pulse Oximetry [RC] ASDIRECTED 10/03/19 21:25 Blood Culture x2 Reflex Set [OM.PC] Stat 10/03/19 21:30 CULTURE STREP A CONFIRMATION [RM] Stat STREP SCRN A RAPID W CULT CONF [RM] Stat 10/03/19 21:31 CULTURE BLOOD [BC] Stat - Assessment/Plan Last 24 Hours: My Active Orders 10/03/19 21:10 CULTURE URINE [RM] Stat 10/03/19 21:13 Sodium Chloride 0.9% [Saline Flush] 10 ml FLUSH ASDIRECTED PRN Sodium Chloride 0.9% [Saline Flush] 2.5 ml FLUSH ASDIRECTED PRN Saline Lock Insert [OM.PC] Stat 10/03/19 21:15 CULTURE BLOOD [BC] Stat 10/03/19 21:23 Cardiac Monitoring [RC] . DIRECTED EKG Documentation Completion [RC] STAT Pulse Oximetry [RC] ASDIRECTED 10/03/19 21:25 Blood Culture x2 Reflex Set [OM.PC] Stat 10/03/19 21:30 CULTURE STREP A CONFIRMATION [RM] Stat STREP SCRN A RAPID W CULT CONF [RM] Stat 10/03/19 21:31 CULTURE BLOOD [BC] Stat
[2019-10-03 21:48] LABS: CARBON DIOXIDE,CO2 26.3 mmol/L (21.0-32.0); POTASSIUM,K 3.8 mmol/L (3.5-5.1)
--- NOTE | 2019-10-03 21:53 | CR ---
Indication: Fever. Technique: Two views of the chest were obtained. Comparison: October 05, 2014. Findings: The heart is normal in size. The lungs are clear. No infiltrate, pleural effusion, or pneumothorax is identified. General later lesions are identified overlying the thoracic spine. Impression: No acute cardiopulmonary process. Dictated by Sheila Toledo MD @ Oct 03 2019 9:51PM Signed by Dr. Sheila Toledo @ Oct 03 2019 9:52PM
[2019-10-03] MEDS ORDERED: cefTRIAXone 2 GM in Premix Bag 1 BAG IV ONE (22:05)
[2019-10-03] MEDS ORDERED: HYDROmorphone 1 MG/ML Syringe IVPUSH ONE (22:09)
[2019-10-03] MEDS ORDERED: Belladonna Alkaloids/Opium 16.2-30 MG Supp RECTAL ONE (22:56)
--- NOTE | 2019-10-03 23:09 | US ---
INDICATION: History of bilateral ureteral stents placed on 09/21/2019. TECHNIQUE: Ultrasound renal bilateral. Boyd-scale and color Doppler sonographic images were acquired of the kidneys and urinary bladder. COMPARISON: CT 03/22/2019 FINDINGS: Moderate degradation of image quality noted due to body habitus and bowel gas. Right Kidney: 9.7 cm. The right kidney is lobulated appearance with numerous echogenic, shadowing foci present. No hydronephrosis or ureterectasis is seen. Left Kidney: 10.4 cm. Cortical scarring is present in the mid zone of the left kidney. Multiple echogenic foci are present. No hydronephrosis or ureterectasis is seen. Bladder: Ureteral stents are partially visualized within the bladder. IMPRESSION: 1. Multiple echogenic foci present in both kidneys, consistent with stones seen on prior CT. Dictated by Minesh Morejon MD @ 10/03/2019 11:08:51 PM Dictated by: Minesh Morejon MD @ 10/03/2019 23:09:10 (Electronically Signed)
[2019-10-03 23:50] VITALS: BP 102/58; PULSE 106
== END 2019-10-03 23:50 | disposition home or self-care (01) ==
LOC: MW.ED 20:47
DX: N39.0 Urinary tract infection, site not specified (principal); I10 Essential (primary) hypertension; E03.9 Hypothyroidism, unspecified; Z79.899 Other long term (current) drug therapy; Z88.5 Allergy status to narcotic agent; Z88.1 Allergy status to other antibiotic agents; Z91.040 Latex allergy status
CPT/HCPCS: 36415; 71046; 76775; 80053; 81001; 83605; 85025; 87040; 87081; 87086; 87804; 87880; 93005; 96361; 96365; 96375; 99284; A9270; J0696; J1170; J7040; 87088; 87186; 99285

== ENCOUNTER 2020-06-20 10:09 | Day surgery (SDC) | payer BC ==
[~2020-06-20 10:09] MED LIST: Lactated Ringers 1,000 ML IV SCH; Sodium Chloride 0.9% 10 ML SDV IV PRN; Sodium Chloride 0.9% 10 ML Syringe FLUSH PRN; Sodium Chloride 0.9% 2.5 ML Syringe FLUSH PRN
[2020-06-20] MEDS ORDERED: Midazolam 1 MG/ML 2 ML SDV ONE (10:26)
[2020-06-20] MEDS ORDERED: Propofol 200 MG/20 ML SDV ONE (10:26)
--- NOTE | 2020-06-20 10:48 | PCM.PREANE ---
Preanesthetic Assessment - Anesthesia/Transfusion/Family Hx Anesthesia History: Prior Anesthesia Reaction Family History of Anesthesia Reaction: No Transfusion History: No Prior Transfusion(s) Intubation History: Unknown - Review of Systems General: No Symptoms Pulmonary: No Symptoms Cardiovascular: No Symptoms Gastrointestinal: No Symptoms, Other (h/o colon polyp 9 years ago, father diagnosed with colon cancer) Neurological: Numbness (feet) Other: Reports: None - Physical Assessment NPO Status Date: 06/20/20 NPO Status Time: 07:00 Vital Signs: Last Vital Signs Temp 36.4 C 06/20/20 10:22 Pulse 94 06/20/20 10:22 Resp 16 06/20/20 10:22 BP 139/96 H 06/20/20 10:22 Pulse Ox 98 06/20/20 10:22 Height: 5 ft 5 in Weight: 93.894 kg ASA Class: 2 Mental Status: Alert & Oriented x3 Airway Class: Mallampati = 2 Dentition: Reports: Normal Dentition, Implants (x2 upper front and lower right (back)) Thyro-Mental Finger Breadths: 3 Mouth Opening Finger Breadths: 2 ROM/Head Extension: Limited/Partial Lungs: Clear to Auscultation, Normal Respiratory Effort Cardiovascular: Regular Rate, Regular Rhythm - Allergies Allergies/Adverse Reactions: Allergies Allergy/AdvReac Type Severity Reaction Status Date / Time ciprofloxacin [From Cipro] Allergy Rash Verified 06/14/20 12:34 gluten Allergy Diarrhea Verified 06/14/20 12:34 hydrocodone Allergy Hives Verified 06/14/20 12:34 latex Allergy Hives Verified 06/14/20 12:34 meperidine HCl [From Demerol] Allergy Hives Verified 06/14/20 12:34 morphine Allergy Hives Verified 06/14/20 12:34 - Blood Blood Available: No - Anesthesia Plan Pre-Op Medication Ordered: None - Acknowledgements Anesthesia Type Planned: MAC Pt an Appropriate Candidate for the Planned Anesthesia: Yes Alternatives and Risks of Anesthesia Discussed w Pt/Guardian: Yes Pt/Guardian Understands and Agrees with Anesthesia Plan: Yes PreAnesthesia Questionnaire - Past Health History Medical/Surgical History: Denies Medical/Surgical History HEENT History: Reports: Other (See Below) Other HEENT History: wears glasses Cardiovascular History: Reports: Arrhythmia Other Cardiovascular History: developed palpitations from anxiety- takes Propranolol was hypertensive before weight loss surgery- no medication now Respiratory History: Reports: Other (See Below) Other Respiratory History: had sleep apnea before weight loss surgery- no CPAP for 6 years Gastrointestinal History: Reports: Celiac Disease, Cholelithiasis, Colon Polyp, GERD, Irritable Bowel Syndrome Genitourinary History: Reports: Renal Calculus, UTI, Recurrent, Other (See Below) Other Genitourinary History: has Medullary Sponge Kidney Disease Musculoskeletal History: Reports: Arthritis, Back Pain, Chronic, Fibromyalgia, Gout, Neck Pain, Chronic Neurological History: Reports: Migraines, Neuropathy, Peripheral, Other (See Below) Other Neuro History: no migraines recently degenerative disc disease, currently has bulging disc in neck Psychiatric History: Reports: Anxiety Endocrine/Metabolic History: Reports: Hypothyroidism, Obesity/BMI 30+ (BMI 34.4) - Infectious Disease History Infectious Disease History: Reports: Chicken Pox, Influenza - Past Surgical History HEENT Surgical History: Reports: Oral Surgery, Tonsillectomy Other HEENT Surgeries/Procedures: has 2 dental implants GI Surgical History: Reports: Bariatric Procedure, Cholecystectomy, Colonoscopy, Other (See Below) Other GI Surgeries/Procedures: gastric sleeves Female Surgical History: Reports: Hysterectomy, Kidney stone extraction, Lithotripsy/ESWL, Salpingo-Oophorectomy, Tubal Ligation Other Female Surgeries/Procedures: hx of kidney bx and stents, stone removal from kidney Endocrine Surgical History: Reports: None Neurological Surgical History: Reports: Lumbar Spine, Other (See Below) Other Neurological Surgeries/Procedures: back surgery x3- has rods and screws, has Spinal Cord stimulator replaced 06/17- not helping Musculoskeletal Surgical History: Reports: Shoulder Surgery Other Musculoskeletal Surgeries/Procedures:: shoulder arthroscopy to remove calcium deposits - SUBSTANCE USE Smoking Status *Q: Never Smoker Recreational Drug Use History: No - HOME MEDS Home Medications: Home Meds Levothyroxine 75 mcg PO QAM 09/28/14 [History] Pantoprazole [ProTONIX] 40 mg PO DAILY 10/03/19 [History] Vilazodone [Viibryd] 40 mg PO DAILY 10/03/19 [History] hydroCHLOROthiazide [Hydrochlorothiazide] 25 mg PO DAILY 10/03/19 [History] ClonazePAM [KlonoPIN] 0.5 mg PO BID 06/14/20 [History] Potassium Chloride 20 meq PO DAILY 06/14/20 [History] Promethazine [Phenergan] 25 mg PO Q4HR PRN 06/14/20 [History] Propranolol [Inderal LA] 60 mg PO QAM 06/14/20 [History] tiZANidine HCl [Tizanidine HCl] 4 mg PO TID PRN 06/14/20 [History] - CURRENT (IN HOUSE) MEDS Current Meds: Current Medications Lactated Ringer's (Ringers, Lactated) 1,000 mls @ 125 mls/hr IV ASDIRECTED NAN Sodium Chloride (Saline Flush) 10 ml FLUSH ASDIRECTED PRN PRN Reason: Keep Vein Open Sodium Chloride (Saline Flush) 2.5 ml FLUSH ASDIRECTED PRN PRN Reason: Keep Vein Open Sodium Chloride (Saline Flush) 10 ml FLUSH ASDIRECTED PRN PRN Reason: Keep Vein Open Sodium Chloride (Saline Flush) 2.5 ml FLUSH ASDIRECTED PRN PRN Reason: Keep Vein Open Sodium Chloride (Normal Saline) 10 ml IV ASDIRECTED PRN PRN Reason: IV Use Discontinued Medications Midazolam HCl (Versed 1 Mg/Ml) Confirm Administered Dose 2 mg .ROUTE .STK-MED ONE Stop: 06/20/20 10:27 Propofol (Diprivan 20 Ml) Confirm Administered Dose 400 mg .ROUTE .STK-MED ONE Stop: 06/20/20 10:27
[2020-06-20] MEDS ORDERED: Ondansetron 4 MG/2 ML SDV ONE (11:28)
[2020-06-20] MEDS ORDERED: fentaNYL 100 MCG/2 ML SDV ONE (11:28)
--- NOTE | 2020-06-20 12:56 | PCM.OPNOTE ---
- General Post-Op/Procedure Note Date of Surgery/Procedure: 06/20/20 Operative Procedure(s): Diagnostic colonoscopy Findings: Normal colonoscopy Pre Op Diagnosis: family history of colon cancer, history of colon polyps Post-Op Diagnosis: normal colonoscopy [place]est[place] [facility] [place]geon: Thu Ames Condition: Good
[2020-06-20 13:12] VITALS: BP 121/79; PULSE 71
--- NOTE | 2020-06-20 13:18 | PCM48HPAN ---
Post Anesthesia Note - EVALUATION WITHIN 48HRS OF ANESTHETIC Vital Signs in Normal Range: Yes Patient Participated in Evaluation: Yes Respiratory Function Stable: Yes Airway Patent: Yes Cardiovascular Function Stable: Yes Hydration Status Stable: Yes Pain Control Satisfactory: Yes Nausea and Vomiting Control Satisfactory: Yes Mental Status Recovered: Yes Vital Signs: Last Vital Signs Temp 36.7 C 06/20/20 13:05 Pulse 71 06/20/20 13:05 Resp 14 06/20/20 13:05 BP 121/79 06/20/20 13:05 Pulse Ox 98 06/20/20 13:05 - COMMENTS/OBSERVATIONS Free Text/Narrative:: No anesthesia problems
--- NOTE | 2020-06-20 13:38 | PCM.POSTAN ---
POST ANESTHESIA ASSESSMENT - MENTAL STATUS Mental Status: Alert, Oriented - VITAL SIGNS Vital Signs: Last Vital Signs Temp 36.7 C 06/20/20 13:05 Pulse 71 06/20/20 13:05 Resp 14 06/20/20 13:05 BP 121/79 06/20/20 13:05 Pulse Ox 98 06/20/20 13:05 - RESPIRATORY Respiratory Status: Respiratory Rate WNL, Airway Patent, O2 Saturation Stable - CARDIOVASCULAR CV Status: Pulse Rate WNL, Blood Pressure Stable - GASTROINTESTINAL GI Status: No Symptoms - PAIN Pain Score: 0 - POST OP HYDRATION Hydration Status: Adequate & Stable - OBSERVATIONS Free Text/Narrative:: No anesthesia problems
--- NOTE | 2020-06-20 15:46 | OR ---
SURGEON: THU AMES MD DATE OF PROCEDURE: 06/20/2020 PREOPERATIVE DIAGNOSIS: History of colon polyps. POSTOPERATIVE DIAGNOSIS: Normal colonoscopy. PROCEDURE PERFORMED: Diagnostic colonoscopy. PRIMARY SURGEON: Thu Ames MD ANESTHESIA: MAC. INSTRUMENT USED: Olympus colonoscope. EXTENT OF EXAM: To the cecum. PREPARATION: Good. LIMITATIONS: None. INDICATIONS FOR EXAMINATION: The patient is a 44-year-old female with a history of colon polyps. Her father was diagnosed with colon cancer in his late 60s. The patient and I discussed the need for diagnostic colonoscopy. I explained the procedure; expected perioperative course; and risks including bleeding, infection, or damage to surrounding structures including perforation. She verbalized understanding and wishes to proceed. PROCEDURE IN DETAIL: The patient was brought into the endoscopy suite and placed in the left lateral decubitus position. A time-out was completed verifying the patient's name, age, date of , allergies, and procedure to be performed. Monitored anesthesia care was induced and continuous oxygen was provided via nasal cannula throughout the procedure. After adequate sedation was achieved, a digital rectal exam was performed. This exam was within normal limits. A well-lubricated colonoscope was inserted in the rectum and advanced under direct visualization to the level of the cecum. The cecum was identified by both visual and anatomic landmarks. A photograph was taken of the cecal cap as well as with the scope retroflexed within the cecum. The scope was then fully withdrawn while examining the color, texture, anatomy, and integrity of the mucosa from the cecum to the anal canal. The findings were consistent with normal colonic mucosa. The scope was brought into the rectum and retroflexed to allow visualization of the anal canal opening. This appeared normal and a photograph was taken. The scope was then straightened out and fully withdrawn. The cecum to anus time was 6 minutes. The patient tolerated the procedure well and was transferred to the PACU in stable condition. ENDOSCOPIC DIAGNOSES: History of colon polyps, normal colonoscopy. RECOMMENDATIONS: Follow up in clinic in 5 years. YVON / LENA /[id number]
== END 2020-06-20 13:25 | disposition home or self-care (01) ==
LOC: MW.SDS 10:09
PROVIDERS: ATTEND Surgery
DX: Z12.11 Encounter for screening for malignant neoplasm of colon (principal); K21.9 Gastro-esophageal reflux disease without esophagitis; M10.9 Gout, unspecified; I12.9 Hypertensive chronic kidney disease with stage 1 through stage 4 chronic kidney disease, or unspecified chronic kidney disease; E03.9 Hypothyroidism, unspecified; N18.9 Chronic kidney disease, unspecified; F41.9 Anxiety disorder, unspecified; E66.9 Obesity, unspecified; Z88.1 Allergy status to other antibiotic agents; Z88.5 Allergy status to narcotic agent; Z91.040 Latex allergy status; Z88.6 Allergy status to analgesic agent; Z79.890 Hormone replacement therapy; Z79.899 Other long term (current) drug therapy; Z68.35 Body mass index [BMI] 35.0-35.9, adult; Z86.010 Personal history of colon polyps; Z80.0 Family history of malignant neoplasm of digestive organs
CPT/HCPCS: 45378; J2250; J2405; J2704; J3010; J7120